=== PATIENT | female | born 1970 | race Caucasian/White ===

== ENCOUNTER 2025-08-01 09:04 | Outpatient (CLI) | payer OTHER, SELFPAY ==
[2025-08-01 15:44] LABS: Influenza A, PCR Not Detected (NotDetected); Influenza B, PCR Not Detected (NotDetected)
[2025-08-01 22:00] LABS: Coronavirus 19, PCR Detected (NotDetected)
--- OUTSIDE RECORDS SUMMARY | 2025-08-02 13:19 | XMS_ITS | Clinical Summary ---
Author Organization [facility] ystem Address [address] [place] [address] Care Team Providers Care Eyeglass Frames Inspector Name Role Phone Deandra Chapman Primary Care Provider [phone] Allergies Active Allergy Reactions Criticality Noted Date Comments Amoxicillin-Pot Clavulanate Hives 12/17/2022 Ciprofloxacin Itching,Rash Low 04/09/2016 Clarithromycin Rash Low 04/08/2016 Other Hives 04/08/2016 Contrast Dye Oxycodone-Acetaminophen Headache,Nausea Only 04/08/2016 Penicillins Rash Low 06/14/2023 Sulfamethoxazole-Trimetho prim Rash Low 12/17/2022 Tramadol Other (See Comments) 06/14/2023 Tired and drowsy Yeast-Derived Drug Products Itching 04/08/2016 Medications aspirin 81 MG EC tablet Take 1 tablet by mouth Daily. Active Cholecalciferol 50 MCG (1999) capsule Take 5,000 Units by mouth Daily. Active fluticasone (FLONASE) 50 MCG/ACT nasal sprayIndications:A cute maxillary sinusitis, recurrence not specified Administer 2 sprays into the nostril(s) as directed by provider Daily. 16 g 2 5 Active estradiol (ESTRACE VAGINAL) 0.1 MG/GM vaginal creamIndications:D yspareunia, female,Vaginal atrophy 1 gram per vagina qhs x 7 then twice weekly 1 each 3 5 Active metFORMIN ER (GLUCOPHAGE-XR) 500 MG 24 hr tabletIndications: Encounter for well adult exam without abnormal findings,Prediabet es Take 1 tablet by mouth Daily With Breakfast. 30 tablet 5 5 Active atorvastatin (LIPITOR) 40 MG tabletIndications: Mixed hyperlipidemia Take 1 tablet by mouth Daily. 90 tablet 3 5 Active DULoxetine (CYMBALTA) 60 MG capsuleIndications :Fibromyalgia Take 1 capsule by mouth Daily. 90 capsule 3 5 Active metoprolol succinate XL (TOPROL-XL) 25 MG 24 hr tabletIndications: Primary hypertension Take 1 tablet by mouth Daily. 90 tablet 3 5 Active omeprazole (priLOSEC) 20 MG capsuleIndications :Gastroesophageal reflux disease, unspecified whether esophagitis present Take 1 capsule by mouth Daily. 90 capsule 3 5 Active modafinil (PROVIGIL) 200 MG tabletIndications: Primary narcolepsy without cataplexy Take 1 tablet by mouth Daily. 30 tablet 3 5 Active Estradiol (ESTRACE) 0.01 % vaginal cream Insert 2 g into the vagina Daily. 4 g 1 5 Active Active Problems Problem Noted Date Diagnosed Date Hypopituitarism 10/24/2023 Primary narcolepsy without cataplexy 10/24/2023 TERESA (obstructive sleep apnea) 10/24/2023 Gastroesophageal reflux disease 10/24/2023 RLS (restless legs syndrome) 10/24/2023 Vitamin D deficiency 10/24/2023 Primary hypertension 10/23/2023 Prediabetes 10/23/2023 Mixed hyperlipidemia 10/23/2023 Fibromyalgia 10/23/2023 Encounters Date Type Department Care Team Description 07/12/2025 Refill [facility] O[facility] [address] [place] [address] Lucina Beckett APRN 06/10/2025 Telephone [facility] [address] [address] Deandra Chapman PA PA Denial (NUVIA Denied for Provigil for not meeting requirement of consultation with neuro/sleep medicine) 06/02/2025 Results Follow-Up [facility] [address] [address] Deandra Chapman PA 05/30/2025 11:00 AM EDT Office Visit [facility] [address] [place] [address] Deandra Chapman PA Encounter for well adult exam without abnormal findings (Primary Dx); Obesity (BMI 30.0-34.9); Primary hypertension; Mixed hyperlipidemia; Vitamin D deficiency; Primary narcolepsy without cataplexy; Hypopituitarism; Screening for malignant neoplasm of colon; Prediabetes; Fibromyalgia; Gastroesophageal reflux disease, unspecified whether esophagitis present 05/30/2025 Travel from Last 3 Months Immunizations Immunization Administration Dates Next Due Hep B, Unspecified 08/11/2012,08/11/2010, 010 Influenza, Unspecified 05/17/2025 Pneumococcal Conjugate 20-Valent (PCV20) 024 Pneumococcal, Unspecified 07/11/2021 Tdap 04/28/2024 Zoster, Unspecified 07/11/2022,06/11/2022,2021 Family History Medical History Relation Name Comments Diabetes Father Parvin Whitmore Heart attack Father Parvin Whitmore Hyperlipidemia Father Parvin Whitmore Hypertension Father Parvin Whitmore Cancer Mother Nell Rosen Breast cancer Paternal Aunt 60's Breast cancer Paternal Cousin 1 Breast cancer Paternal Cousin 2 Ovarian cancer Neg Hx Relation Name Status Comments Father Parvin Whitmore Mother Nell Rosen Paternal Aunt Paternal Cousin 1 Paternal Cousin 2 Alive Social History Tobacco Use Types Packs/Day Years Used Date Smoking Tobacco: Former Cigarettes 0.5 1.8 0 08/11/2022 - 06/11/2024 Passive Smoke Exposure: Current Smokeless Tobacco: Never Tobacco Cessation:Counseling Given: Not Answered Alcohol Use Standard Drinks/Week Comments Not Currently 0 (1 standard drink = 0.6 oz pur e alcohol) PHQ-2 Answer Date Recorded Patient Health Questionnaire-2 Score 0 05/30/2025 Comments No Sex and Gender Information Value Date Recorded Sex Assigned at Female 05/29/2025 11:14 AM EDT Legal Sex Female 9:18 AM EST Gender Identity Not on file Sexual Orientation Not on file Last Filed Vital Signs Vital Sign Reading Time Taken Comments Blood Pressure 116/78 05/30/2025 10:45 AM EDT Pulse 71 05/30/2025 10:45 AM EDT Temperature 36.4 C (97.6 F) 05/30/2025 10:45 AM EDT Respiratory Rate 18 03/23/2025 8:53 AM EDT Oxygen Saturation 96% 05/30/2025 10:45 AM EDT Inhaled Oxygen Concentration - - Weight 91.6 kg (202 lb) 05/30/2025 10:45 AM EDT Height 165.1 cm (5' 5 ) 05/30/2025 10:45 AM EDT Body Mass Index 33.61 05/30/2025 10:45 AM EDT Plan of Treatment Upcoming Encounters Date Type Department Care Team (Late st Contact Info) Description 09/17/2025 11:10 AM EST Appointment [address] [address] 11/14/2025 3:00 PM EDT Office Visit [facility] [address] [place] [address] Deandra Chapman PA [address] [place] [address] 03/29/2026 8:30 AM EDT Office Visit [facility] O[facility]YN [address] [place] [address] Anel Haque, CANAL BOAT OPERATOR [address] [facility] [address] [place] [address] Health Maintenance Due Date Last Done Comments COLOGUARD 2015 COLON CANCER SCREENING 5 YEA R SIGMOIDOSCOPY 2015 CT COLONOGRAPHY 2015 FECAL OCCULT BLOOD TEST 2015 FIT Testing (1 year) 2015 MAMMOGRAM 12/07/2025 12/08/2023, 11/10, 11/28/2023, Additional history exists Annual Gynecologic Pelvic an d Breast Exam 03/24/2026 03/23/2025 ANNUAL PHYSICAL 05/30/2026 05/30/2025, 11/2022 (Patient-Reported (Performed Externally)) LIPID PANEL 05/30/2026 05/30/2025, 0401/2025, 04/28/2024, Additional history exists COLONOSCOPY 05/30/2028 05/30/2025, 08/2019 (Patient-Reported (Performed Externally)) COLORECTAL CANCER SCREENING 05/30/2028 TDAP/TD VACCINES (2 - Td or Tdap) 04/28/2034 024 ZOSTER VACCINE Discontinued 07/11/2022, 08/2021, 03/11/2022 HEPATITIS C SCREENING Completed 06/14/2023 Pneumococcal Vaccine 50+ Completed 04/28/2024, 08/2020 INFLUENZA VACCINE Completed 05/18/2025, 05/17/2025 Procedures Procedure Name Priority Date/Time Associated Diagnosis Comments CBC AND DIFFERENTIAL Routine 05/30/2025 11:20 AM EDT Encounter for well adult exam without abnormal findings Obesity (BMI 30.0-34.9) Primary hypertension Mixed hyperlipidemia Primary narcolepsy without cataplexy MAGNESIUM Routine 05/30/2025 11:20 AM EDT Encounter for well adult exam without abnormal findings Obesity (BMI 30.0-34.9) FOLATE Routine 05/30/2025 11:20 AM EDT Encounter for well adult exam without abnormal findings Obesity (BMI 30.0-34.9) VITAMIN B12 Routine 05/30/2025 11:20 AM EDT Encounter for well adult exam without abnormal findings Obesity (BMI 30.0-34.9) IRON PROFILE Routine 05/30/2025 11:20 AM EDT Encounter for well adult exam without abnormal findings Obesity (BMI 30.0-34.9) VITAMIN D,25-HYDROXY Routine 05/30/2025 11:20 AM EDT Encounter for well adult exam without abnormal findings Vitamin D deficiency INSULIN, TOTAL Routine 05/30/2025 11:20 AM EDT Encounter for well adult exam without abnormal findings Obesity (BMI 30.0-34.9) T4, FREE Routine 05/30/2025 11:20 AM EDT Encounter for well adult exam without abnormal findings Obesity (BMI 30.0-34.9) Hypopituitarism TSH Routine 05/30/2025 11:20 AM EDT Encounter for well adult exam without abnormal findings Obesity (BMI 30.0-34.9) Hypopituitarism HEMOGLOBIN A1C Routine 05/30/2025 11:20 AM EDT Encounter for well adult exam without abnormal findings Obesity (BMI 30.0-34.9) LIPID PANEL Routine 05/30/2025 11:20 AM EDT Encounter for well adult exam without abnormal findings Mixed hyperlipidemia COMPREHENSIVE METABOLIC PANEL Routine 05/30/2025 11:20 AM EDT Encounter for well adult exam without abnormal findings Obesity (BMI 30.0-34.9) Primary hypertension Mixed hyperlipidemia Primary narcolepsy without cataplexy SCANNED - COLONOSCOPY 05/30/2025 MAMMO OUTSIDE FILMS Routine 12/05/2023 1 :25 PM EDT H/O mammogram from Last 3 Months or Most Recently Relevant to Health Maintenance Results * Iron Profile w/o Ferritin (05/30/2025 11:20 AM EDT) TIBC 299 250 - 450 ug/dL [facility] UIBC 221 131 - 425 ug/dL [facility] Iron 78 27 - 159 ug/dL [facility] Iron Saturation 26 15 - 55 % [facility] Blood 05/30/2025 11:2 0 AM EDT 05/30/2025 Narrative [facility] ([facility]) - 05/31/2025 8:11 AM EDT Performed at: 01 - [facility] [place], [place] [id number] Formula Room Worker: Geoff Meadows PhD, Phone: [phone] Patient Fasting: Y Deandra PEDERSEN LAB BLOOD ORDERABLES Final Res ult Performing Organization Address City/[facility]/ZIP Co de Phone Number [facility] [address] [place] [address], [facility] [address] [place] [address], * Vitamin D 25 hydroxy (05/30/2025 11:20 AM EDT) [facility] 25 Hydroxy, Vitamin D 48.9 30.0 - 100.0 ng/mL [facility] Comment: Vitamin D deficiency has been defined by the [place] of Medicine and an Endocrine Society practice guideline as a level of serum 25-OH vitamin D less than 20 ng/mL (1,2). The Endocrine Society went on to further define vitamin D insufficiency as a level between 21 and 29 ng/mL (2). 1. IOM ([place] of Medicine). 2010. Dietary reference intakes for calcium and D. Velás[place]: The National Academies Press. 2. Mindy MF, Richard NC, Trice SNOW, et al. Evaluation, treatment, and prevention of vitamin D deficiency: an Endocrine Society clinical practice guideline. JCEM. 2010; 96(7):1911-30. Blood 05/30/2025 11:2 0 AM EDT 05/30/2025 Narrative [facility]) - 05/31/2025 8:11 AM EDT Performed at: 01 - [facility] [address] [place], [place] [id number] Formula Room Worker: Geoff Meadows PhD, Phone: [phone] Patient Fasting: Y Deandra PEDERSEN LAB BLOOD ORDERABLES Final Res ult Performing Organization Address City/[facility]/ZIP Co de Phone Number [facility] ([facility]) [address] [place] [address], [facility] [address] [place] [address], * Insulin, Total (05/30/2025 11:20 AM EDT) Pathologist [facility] Insulin 14.0 2.6 - 24.9 uIU/mL [facility] Blood 05/30/2025 11:2 0 AM EDT 05/30/2025 Narrative [facility] (AMBULATORY) - 05/31/2025 8:11 AM EDT [facility]formed at: [facility] - [facility] [address] [place], [place] [id number] Formula Room Worker: Geoff Meadows PhD, Phone: [phone] Patient Fasting: Y Deandra PEDERSEN LAB BLOOD ORDERABLES Final Res ult [facility] (AMBULATORY) [address] [place] [address], [facility] [address] [place] [address], * CBC w AUTO Differential (05/30/2025 11:20 AM EDT) [facility] WBC 8.0 3.4 - 10.8 x10E3/uL [facility] RBC 4.35 3.77 - 5.28 x10E6/uL [facility] Hemoglobin 13.6 11.1 - 15.9 g/dL [facility] Hematocrit 40.9 34.0 - 46.6 % [facility] MCV 94 79 - 97 fL [facility] MCH 31.3 26.6 - 33.0 pg [facility] MCHC 33.3 31.5 - 35.7 g/dL [facility] RDW 12.2 11.7 - 15.4 % [facility] Platelets 307 150 - 450 x10E3/uL [facility] Neutrophil Rel % 65 Not Estab. % [facility] Lymphocyte Rel % 27 Not Estab. % [facility] Monocyte Rel % 6 Not Estab. % [facility] Eosinophil Rel % 2 Not Estab. % [facility] Basophil Rel % 0 Not Estab. % [facility] Neutrophils Absolute 5.1 1.4 - 7.0 x10E3/uL [facility] Lymphocytes Absolute 2.2 0.7 - 3.1 x10E3/uL [facility] Monocytes Absolute 0.5 0.1 - 0.9 x10E3/uL [facility] Eosinophils Absolute 0.1 0.0 - 0.4 x10E3/uL [facility] Basophils Absolute 0.0 0.0 - 0.2 x10E3/uL [facility] Immature Granulocyte Rel % 0 Not Estab. % [facility] Immature Grans Absolute 0.0 0.0 - 0.1 x10E3/uL [facility] Blood 05/30/2025 11:2 0 AM EDT 05/30/2025 Narrative [facility] ([facility]) - 05/31/2025 8:11 AM EDT Performed at: [address] [place] [id number] Formula Room Worker: Geoff Meadows PhD, Phone: [phone] Patient Fasting: Y Deandra PEDERSEN LAB BLOOD ORDERABLES Final Res ult Performing Organization Address [facility] de Phone Number [facility] (AMBULATORY) [address] [place] [address], [facility] [address] [place] [address], * TSH (05/30/2025 11:20 AM EDT) TSH 0.509 0.450 - 4.500 uIU/mL [facility] Blood 05/30/2025 11:2 0 AM EDT 05/30/2025 Narrative [facility] ([facility]) - 05/31/2025 8:11 AM EDT Performed at: [address] [place] [id number] Formula Room Worker: Geoff Meadows PhD, Phone: [phone] Patient Fasting: Y us Deandra PEDERSEN LAB BLOOD ORDERABLES Final Res ult Performing Organization Address City/[facility]/ZIP Co de Phone Number [facility] ([facility]) [address] [place] [address], [facility] [address] [place] [address], * T4, free (05/30/2025 11:20 AM EDT) Free T4 0.98 0.82 - 1.77 ng/dL [facility] Blood 05/30/2025 11:2 0 AM EDT 05/30/2025 Narrative [facility] ([facility]) - 05/31/2025 8:11 AM EDT Performed at: - [address] [id number] Formula Room Worker: Geoff Meadows PhD, Phone: [phone] Patient Fasting: Y us Deandra PEDERSEN LAB BLOOD ORDERABLES Final Res ult Performing Organization Address [facility] Co de Phone Number [facility] ([facility]) [address] [place] [address], [facility] [address] [place] [address], * Magnesium (05/30/2025 11:20 AM EDT) Magnesium 2.2 1.6 - 2.3 mg/dL [facility] Blood 05/30/2025 11:2 0 AM EDT 05/30/2025 Narrative [facility] ([facility]) - 05/31/2025 8:11 AM EDT Performed at: - [address] [id number] Formula Room Worker: Geoff Meadows PhD, Phone: [phone] Patient Fasting: Y us Deandra PEDERSEN LAB BLOOD ORDERABLES Final Res ult Performing Organization Address City/[facility]/ZIP Co de Phone Number [facility] (AMBULATORY) [address] [place] [address], [place] [phone] [facility] [address] [place] [address], [place] [phone] * (ABNORMAL) Hemoglobin A1c (05/30/2025 11:20 AM EDT) Pathologist [facility] Hemoglobin A1C 5.9(H) 4.8 - 5.6 % [facility] Comment: Prediabetes: 5.7 - 6.4 Diabetes: >6.4 Glycemic control for adults with diabetes: <7.0 Blood 05/30/2025 11:2 0 AM EDT 05/30/2025 Narrative [facility] ([facility]) - 05/31/2025 8:11 AM EDT Performed at: - [address] [id number] Formula Room Worker: Geoff Meadows PhD, Phone: [phone] Patient Fasting: Y Deandra PEDERSEN LAB BLOOD ORDERABLES Final Res ult Performing Organization Address [facility] Co de Phone Number [facility] ([facility]) [address] [place] [address], [facility] [address] [place] [address], * Folate (05/30/2025 11:20 AM EDT) [facility] Folate 10.7 >3.0 ng/mL [facility] Comment: A serum folate concentration of less than 3.1 ng/mL is considered to represent clinical deficiency. Blood 05/30/2025 11:2 0 AM EDT 05/30/2025 Narrative [facility] ([facility]) - 05/31/2025 8:11 AM EDT Performed at: - [address] [id number] Formula Room Worker: Geoff Meadows PhD, Phone: [phone] Patient Fasting: Y Deandra PEDERSEN LAB BLOOD ORDERABLES Final Res ult Performing Organization Address [facility]/ZIP Co de Phone Number [facility] ([facility]) [address] [place] [address], [facility] [address] [place] [address], [place] [phone] * Vitamin B12 (05/30/2025 11:20 AM EDT) [facility] Vitamin B-12 621 232 - 1,245 pg/mL [facility] Blood 05/30/2025 11:2 0 AM EDT 05/30/2025 Narrative [facility] ([facility]) - 05/31/2025 8:11 AM EDT Performed at: - [address] [id number] Formula Room Worker: Geoff Meadows PhD, Phone: [phone] Patient Fasting: Y us Deandra PEDERSEN LAB BLOOD ORDERABLES Final Res ult [facility] (AMBUL[facility]) [address] [place] [address], [place] [phone] [facility] [address] [place] [address], [place] [phone] * (ABNORMAL) Lipid Panel (05/30/2025 11:20 AM EDT) [facility] Total Cholesterol 142 100 - 199 mg/dL [facility] Triglycerides 102 0 - 149 mg/dL [facility] HDL Cholesterol 35(L) >39 mg/dL [facility] VLDL Cholesterol Jonh 19 5 - 40 mg/dL [facility] LDL Chol Calc (NIH) 88 0 - 99 mg/dL [facility] Blood 05/30/2025 11:2 0 AM EDT 05/30/2025 Narrative [facility] ([facility]) - 05/31/2025 8:11 AM EDT Performed at: - [address] [id number] Formula Room Worker: Geoff Meadows PhD, Phone: [phone] Patient Fasting: Y us Deandra PEDERSEN LAB BLOOD ORDERABLES Final Res ult [facility] ([facility]) [address] [place] [address], [facility] [address] [place] [address], * Comprehensive metabolic panel (05/30/2025 11:20 AM EDT) [facility] Glucose 98 70 - 99 mg/dL [facility] BUN 16 6 - 24 mg/dL [facility] Creatinine 0.86 0.57 - 1.00 mg/dL [facility] EGFR Result 80 >59 mL/min/1.7 3 [facility] BUN/Creatinine Ratio 19 9 - 23 [facility] Sodium 140 134 - 144 mmol/L [facility] Potassium 4.7 3.5 - 5.2 mmol/L [facility] Chloride 104 96 - 106 mmol/L [facility] Total CO2 25 20 - 29 mmol/L [facility] Calcium 9.6 8.7 - 10.2 mg/dL [facility] Total Protein 6.9 6.0 - 8.5 g/dL [facility] Albumin 4.3 3.8 - 4.9 g/dL [facility] Globulin 2.6 1.5 - 4.5 g/dL [facility] Total Bilirubin 0.5 0.0 - 1.2 mg/dL [facility] Alkaline Phosphatase 107 49 - 135 IU/L [facility] AST (SGOT) 15 0 - 40 IU/L [facility] ALT (SGPT) 24 0 - 32 IU/L [facility] Blood 05/30/2025 11:2 0 AM EDT 05/30/2025 Narrative [facility] ([facility]) - 05/31/2025 8:11 AM EDT Performed at: 01 - [facility] [address] [facility], [place], [place] [id number] Formula Room Worker: Geoff Meadows PhD, Phone: [phone] Patient Fasting: Y Deandra PEDERSEN LAB BLOOD ORDERABLES Final Res ult [facility] ([facility]) [address] [place] [address], [facility] [address] [place] [address], * Colonoscopy, Scan (05/30/2025) Deandra PEDERSEN CHART REVIEW TABS Final Res ult * MAMMO Outside Films (12/05/2023 1:25 PM EDT) Narrative SYSTEMGENERATED, DOCUMENTATION - 12/05/2023 1:25 PM EDT This procedure was auto-finalized with no dictation required. Deandra PEDERSEN IMG MAMMOGRAPHY ORDERABLES Fin al Result from Last 3 Months or Most Recently Relevant to Health Maintenance Insurance [facility] [employer] [place] [employer] Care Teams Eyeglass Frames Inspector Relationship Specialty Start Date End Date Deandra Chapman PA [address] [facility] [address] PCP - General Physician Regulator Mechanic 10/23/23
--- OUTSIDE RECORDS SUMMARY | 2025-08-02 13:19 | XMS_ITS | Encounter Summary ---
[facility] Address [address] [place] [address] Care Team Providers Care Head Host/Hostess Name Role Phone Deandra Chapman Primary Care Provider Reason for Visit * Reason Onset Date Comments PA Denial 06/10/2025 PA Denied for Pr ovigil for not meeting requirement of consultation with neuro/sleep medicine Encounter Details Date Type Department Care Team (Late st Contact Info) Description 06/10/2025 Telephone [facility]INE [address] [place] [address] Deandra Chapman PA [address] [place] [address] PA Denial (NUVIA Denied for Provigil for not meeting requirement of consultation with neuro/sleep medicine) Social History Tobacco Use Types Packs/Day Years Used Date Smoking Tobacco: Former Cigarettes 0.5 1.8 0 08/11/2022 - 06/11/2024 Passive Smoke Exposure: Current Smokeless Tobacco: Never Alcohol Use Standard Drinks/Week Comments Not Currently 0 (1 standard drink = 0.6 oz pur e alcohol) PHQ-2 Answer Date Recorded Patient Health Questionnaire-2 Score 0 05/30/2025 Comments No Sex and Gender Information Value Date Recorded Sex Assigned at Female 05/29/2025 11:14 AM EDT Legal Sex Female 9:18 AM EST Gender Identity Not on file Sexual Orientation Not on file documented as of this encounter Miscellaneous Notes * Telephone Encounter - Deandra Chapman PA - 06/12/2025 1:46 PM EST There is no message associated with this telephone encounter but it appears that patient must get provigil from sleep medicine provider per insurance. Has appointment schedule this month. documented in this encounter Plan of Treatment Upcoming Encounters Date Type Department Care Team (Late st Contact Info) Description 09/17/2025 11:10 AM EST Appointment [facility] [id number] [place] [address] 11/14/2025 3:00 PM EDT Office Visit [facility] [address] [place] [address] Deandra Chapman PA [address] [place] [address] 03/29/2026 8:30 AM EDT Office Visit [facility] OBGYN [address] [place] [address] Anel Haque, RECRUITMENT AND OUTREACH ASSISTANT [address] [facility] [address] [place] [address] documented as of this encounter Visit Diagnoses Not on filedocumented in this encounter Care Teams Head Host/Hostess Relationship Specialty Start Date End Date Deandra Chapman PA [address] [place] [address] PCP - General Physician Judge'S Clerk 10/23/23 documented as of this encounter
--- OUTSIDE RECORDS SUMMARY | 2025-08-02 13:19 | XMS_ITS | Patient Health Record ---
Author Organization [facility] in [place] Address [address] [place] [address] Care Team Providers Care Watch Parts Inspector Name Role Phone Natasha Shafer CNP Primary Care Provider Unava ilable Allergies Allergen (clinical drug ingredient) Drug/Non Drug Allergy documented on EMR Reaction Allergy Type Onset Date Status contract dye (uncoded) Unknown Allergy Active amoxicillin / clavulanate Augmentin Unknown Drug Allergy Active Biaxin Unknown Drug Allergy Active ciprofloxacin Cipro Unknown Drug Allergy Act lam Yeast Formula Unknown Drug Allergy Act lam Reason For Referral No Information Medications Medication SIG (Take, Route, Frequency, Duration) Notes Start Date End Date Status Hydrocortisone 10 MG 1 tablet with food or milk Orally every 12 hrs Active Gabapentin 100 MG 1 capsule Orally Thr ee times a day Active Doxycycline Hyclate 100 MG 1 tablet Oral ly every 12 hrs; Duration: 5 day(s) Active Cymbalta 60 MG 1 capsule Orally Onc e a day Active Xyrem 500 MG/ML 6 ml at bedtime Oral ly Twice a day Active Levothyroxine Sodium 75 MCG 1 tablet on an empty stomach in the morning Orally Once a day Active Adderall 20 MG 1 tablet before meal s Orally TID; Duration: 30 days 11/30/2018 Active Social History Tobacco Use: Social History Observation Description Date Details (start date - stop date) Never Smoker NA - NA Tobacco Use/Smoking Question Answer Notes Patient is a nonsmoker Problems Problem Type SNOMED Code ICD Code Onset Dates Problem Status W/U Status Risk Notes Problem Cataplexy and narcolepsy (857441117) Narcolepsy with cataplexy (G47.411) Active confirmed Problem Obstructive sleep apnea syndrome (71971131) Obstructive sleep apnea syndrome (G47.33) Active confirmed Problem Cataplexy and narcolepsy (371272266) Narcolepsy and cataplexy (G47.411) Active confirmed Plan Of Treatment No Information Insurance Providers Payer Name Payer Address Payer Phone Subscriber Number Group Number Insured Name Patient Relationship to Insured Coverage Start Date Coverage End Date [facility] [address] [place] [phone] [id number] December, Self - patient is the insured Medical (General) History Medical History History ICD Code Essential hypertension I10 Hyperthyroidism E05.90 TERESA (obstructive sleep apnea) G47.33 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
--- OUTSIDE RECORDS SUMMARY | 2025-08-02 13:19 | XMS_ITS | Encounter Summary ---
[facility] [address] [place] [address] Care Team Providers Care Highway Patrol Commander Name Role Phone Deandra Chapman Primary Care Provider [phone] Reason for Visit * Reason Onset Date Comments Med Refill 07/12/2025 Encounter Details Date Type Department Care Team (Late st Contact Info) Description 07/12/2025 Refill [facility] OBGYN [address] [place] [address] Lucina Beckett, MEDICARE COORDINATOR [address] [place] [address] Social History Tobacco Use Types Packs/Day Years [...] on file documented as of this encounter Plan of Treatment Upcoming Encounters Date Type Department Care Team (Late st Contact Info) Description 09/17/2025 11:10 AM EST Appointment [facility] [address] [facility] [place] [address] 11/14/2025 3:00 PM EDT Office Visit [facility] [address] [place] [address] Deandra Chapman PA [address] [place] [address] 03/29/2026 8:30 AM EDT Office Visit [facility] OBGYN [address] [place] [address] Anel Haque, MEDICARE COORDINATOR [address] [facility] [address] [place] [address] documented as of this encounter Visit Diagnoses Not on filedocumented in this encounter Care Teams Highway Patrol Commander Relationship Specialty Start Date End Date Deandra Chapman PA [address] [place] [address] PCP - General Physician Tax Services Professional 10/23/23 documented as of this encounter
--- OUTSIDE RECORDS SUMMARY | 2025-08-02 13:19 | XMS_ITS | Encounter Summary ---
[facility] [address] [place] [address] Care Team Providers Care Music Director Name Role Phone Deandra Chapman Primary Care Provider [phone] Reason for Visit * Reason Onset Date Comments Med Refill 09/03/2024 Encounter Details Date Type Department Care Team (Late st Contact Info) Description 09/03/2024 Refill [facility] [address] [place] [address] Max Mahoney MD [address] [place] [address] Primary narcolepsy without cataplexy Social History Tobacco Use Types Packs/Day Years Used Date Smoking Tobacco: Every Day Cigarettes 0.5 3 Started: 08/11/2022 Passive Smoke Exposure: Current Smokeless Tobacco: Never Alcohol Use Standard Drinks/Week Comments Not Currently 0 (1 standard drink = 0.6 oz pur e alcohol) PHQ-2 Answer Date Recorded Retired PHQ-9: Brief Depression Severity Measure Score 4 10/23/2023 Comments No Sex and Gender Information Value Date Recorded Sex Assigned at Female 05/29/2025 11:14 AM EDT Legal Sex Female 9:18 AM EST Gender Identity Not on file Sexual Orientation Not on file documented as of this encounter Plan of Treatment Upcoming Encounters Date Type Department Care Team (Late st Contact Info) Description 09/17/2025 11:10 AM EST Appointment [facility] [address] [place] [address] 11/14/2025 3:00 PM EDT Office Visit [facility] [address] [place] [address] Deandra Chapman PA [address] [place] [address] 03/29/2026 8:30 AM EDT Office Visit [facility] OBGYN [address] [place] [address] Anel Haque, MANAGER REGIONAL [address] [facility] [address] [place] [address] documented as of this encounter Visit Diagnoses Diagnosis Primary narcolepsy without cataplexy documented in this encounter Care Teams Music Director Relationship Specialty Start Date End Date Deandra Chapman PA [address] [place] [address] PCP - General Physician Pedicurist 10/23/23 documented as of this encounter
--- OUTSIDE RECORDS SUMMARY | 2025-08-02 13:19 | XMS_ITS | Patient Health Record ---
Author Organization [facility] Address [address] [place] [address] Care Team Providers Care Ruling Technician Name Role Phone Natasha Shafer CNP Primary Care Provider Adama Lange Unavailable [phone] Reason For Referral No Information Medications Medication SIG (Take, Route, Fr equency, Duration) Notes Start Date End Date Status Sunosi Active levothyroxine Active hydrocortisone Activ e Singulair Active omeprazole Active gabapentin Active atorvastatin Active Cymbalta Active metoprolol Active Vitamin D3 Active Co-Q10 Active loratadine Active Social History Tobacco Use: Social History Observation Description Date Details (start date - stop date) Never Smoker NA - NA Smoking History Question Answer Notes Smoking Status NonSmoker Problems Problem Type SNOMED Code ICD Code Onset Dates Problem Status W/U Status Risk Notes Problem Carpal tunnel syndrome (80530820) Carpal tunnel syndrome, right upper limb (G56.01) Active confirmed Problem Carpal tunnel syndrome (69952604) Carpal tunnel syndrome on both sides (G56.03) Active confirmed Problem Carpal tunnel syndrome (84801279) Carpal tunnel syndrome, bilateral upper limbs (G56.03) Active confirmed Problem Carpal tunnel syndrome (53658572) Carpal tunnel syndrome, right (G56.01) Active confirmed Problem Carpal tunnel syndrome (27696430) Carpal tunnel syndrome, left (G56.02) Active confirmed Plan Of Treatment No Information Insurance Providers Payer Name Payer Address Payer Phone Subscriber Number Group Number Insured Name Patient Relationship to Insured Coverage Start Date Coverage End Date [facility]/o [facility] ATTEN Samara Troncoso [address] [place] [address] [phone] [id number] doi 05-10-22 bilat cts DECEMBER, YUMIKO Self - patient is the insured 2 [facility] [address] [address] [place] [address] [id number] DECEMBER, SANDRO Spouse - patient is the spouse of the insured Medical (General) History Surgical History Surgery Date(Month/Year) 05/14/1995 06/18/1999 Hysterectomy 2012 Right carpal tunnel release 07/23/2022 Left carpal tunnel release 08/01/2022
--- OUTSIDE RECORDS SUMMARY | 2025-08-02 13:19 | XMS_ITS | Patient Health Record ---
Author Organization [facility] Address [address] [place] [address] Care Team Providers Care Clearing Tub Worker Name Role Phone Louise Prince PA-C Unavailable Unavailable Reason For Referral No Information Medications Medication SIG (Take, Route, Frequency, Duration) Notes Start Date End Date Status Vitamin E 100 UNIT Capsule Oral Active Omeprazole 20 MG Capsule Delayed Release Oral Active Atorvastatin Calcium 20 MG Tablet take 1 tablet (20 mg) by oral route once daily Oral 1 Active GNP Vitamin D Super Strength 125 MCG (5000 UT) Tablet Oral Active Gabapentin 300 MG Capsule Oral Active Fluticasone Propionate 50 MCG/ACT Suspension Nasal Active Loratadine 10 MG Tablet take 1 tablet (1 0 mg) by oral route once daily Oral 1 Active Hydrocortisone 10 MG Tablet take 1 tablet (10 mg) by oral route once daily with food Oral 1 Active Calcium 600 mg calcium (1,500 mg) Tablet take 2 tablets by oral route daily Oral 1 *Pick strength-form from [employer] for eRX* Active Aspirin Adult Low Dose 81 MG Tablet Delayed Release take 1 tablet (81 mg) by oral route once daily Oral 1 Active Metoprolol Succinate ER 25 MG Tablet Extended Release 24 Hour take 1 tablet (25 mg) by oral route once daily Oral 1 Active Cymbalta 60 MG Capsule Delayed Release Particles Oral Active Cyclobenzaprine HCl 10 MG Tablet Oral Active Sunosi 150 mg tablet take 1 tablet (150 mg) by oral route once daily upon awakening oral 1 Active Social History Social History Additional Details Category Social Info Options Details Migrated Social History Migrated Social History :: Age of first sexual encounter :: note : 18 , :: Gender of sexual partners :: note : male , :: 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 : 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 - 11/20/2017 - , :: Lifetime partners :: note : 07/18/2020 - 11/20/2017 - 1 , :: Partners in the last 6 months :: note : 11/20/2017 - 1 , Domestic Violence :: Denies emotional/verbal abuse :: note : 11/20/2017 - , Domestic Violence :: Denies physical abuse :: note : 11/20/2017 - , Domestic Violence :: Denies Sexual Abuse :: note : 11/20/2017 - , Exercise :: Active but no formal exercise :: note : 11/20/2017 - , Hazardous Exposure :: Denies knowledge of exposure to hazardous substances :: note : 11/20/2017 - , Infection Risk :: Denies known exposure to STD :: note : 11/20/2017 - , Marital Status :: :: note : 07/18/2020 - 11/20/2017 - , History :: Did not serve :: note : 11/20/2017 - , 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 - , Substance Use :: Alcohol :: Current some day smoker :: note : 11/26/2018 - 11/20/2017 - amp;Use status used: Current some dayamp;Amount used: rarely:: Quantity :: rarely , Substance Use :: No abuse of any substances :: Never smoker :: note : 11/20/2017 - , Substance Use :: Tobacco :: Never smoker :: note : 07/18/2020 - , Travel History :: Uses seat belts :: note : 11/20/2017 - Problems Problem Type SNOMED Code ICD Code Onset Dates Problem Status W/U Status Risk Notes Problem Other specified disorders of bone density and structure, 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 [address] [place], [place] [id number] Vinnie Fontanez [address] [place] [address] [phone] [id number] DecemberVinnie 7 Medical (General) History Surgical History Surgery Date(Month/Year) Colonoscopy: wnl, Date of Procedure: 12/10; 11/14/2016 EGD (esophagogastroduodenosc opy): Mild gastritis and mild duodenitis , Date of Procedure: 2014; 11/14/2016 Section, Primary; 11/26/2018 Section, Repeat subsequent preg nancies; 11/26/2018 cholecsystectomy: Bhavik Coulter, Date of Proc edure: 08/11/2009; 01/20/2015 Endometrial Ablation: Lamar Martínez, Date of Procedure: 08/11/2010; 01/20/2015 TLH Total Laproscopic Hyster ectomy: TLH with BSO via Single Port, TEETEE and Cystoscopy, TL Siddiqi, Date of Procedure: 05/04/2012; 01/20/2015 D&C: BHAVIK Coulter Dr, Date of Procedure : 08/11/2010; 01/20/2015
--- OUTSIDE RECORDS SUMMARY | 2025-08-02 13:19 | XMS_ITS | Encounter Summary ---
[facility] Address [address] [place] [address] Care Team Providers Care Health Program Specialist Name Role Phone Deandra Chapman Primary Care Provider [phone] Encounter Details Date Type Department Care Team (Late st Contact Info) Description 03/24/2025 Results Follow-Up [facility] MEDICAL [facility] OBGYN [address] [place] [address] Anel Haque, COMMANDER INTERNAL AFFAIRS [address] [facility] [address] [place], [place] [id number] Social History Tobacco Use Types Packs/Day Years [...] Info) Description 09/17/2025 11:10 AM EST Appointment [address] [address] 11/14/2025 3:00 PM EDT Office Visit [facility] [address] [place] [address] Deandra Chapman PA [address] [place] [address] 03/29/2026 8:30 AM EDT Office Visit [facility] O[facility] [address] [place] [address] Anel Haque, COMMANDER INTERNAL AFFAIRS [address] [address] documented as of this encounter Visit Diagnoses Not on filedocumented in this encounter Care Teams Health Program Specialist Relationship Specialty Start Date End Date Deandra Chapman PA [address] [place] [address] PCP - General Physician Flexographic Press Plate Setter 10/23/23 documented as of this encounter
--- OUTSIDE RECORDS SUMMARY | 2025-08-02 13:19 | XMS_ITS | Encounter Summary ---
[facility] Address [address] [place] [address] Care Team Providers Care Tooling Inspector Name Role Phone Deandra Chapman Primary Care Provider [phone] Reason for Visit * Reason Onset Date Comments Med Refill 09/09/2024 Encounter Details Date Type Department Care Team (Late st Contact Info) Description 09/09/2024 Refill [facility] MEDICAL [facility]INE [address] [place] [address] Max Mahoney MD [address] [place] [address] Primary narcolepsy without cataplexy Social [...] Info) Description 09/17/2025 11:10 AM EST Appointment [facility] [address] [place] [address] 11/14/2025 3:00 PM EDT Office Visit [facility] [address] [place] [address] Deandra Chapman PA [address] [place] [address] 03/29/2026 8:30 AM EDT Office Visit [facility] OBGYN [address] [place] [address] Anel Haque, DIRECTOR OF OFFICIATING [address] [facility] [address] [place] [address] documented as of this encounter Visit Diagnoses Diagnosis Primary narcolepsy without cataplexy documented in this encounter Care Teams Tooling Inspector Relationship Specialty Start Date End Date Deandra Chapman PA [address] [place] [address] PCP - General Physician Sales Support Administrator 10/23/23 documented as of this encounter
--- OUTSIDE RECORDS SUMMARY | 2025-08-02 13:19 | XMS_ITS | Encounter Summary ---
[facility] Address [address] [place] [address] Care Team Providers Care Inspector Integrated Circuits Name Role Phone Deandra Chapman Primary Care Provider [phone] Encounter Details Date Type Department Care Team (Late st Contact Info) Description 11/29/2024 Results Follow-Up [facility] [address] [facility] [place] [address] Deandra Chapman PA [address] [facility] [place] [address] Social History Tobacco Use Types Packs/Day Years [...] Info) Description 09/17/2025 11:10 AM EST Appointment [address] [address] 11/14/2025 3:00 PM EDT Office Visit [facility] [address] [place] [address] Deandra Chapman PA [address] [place] [address] 03/29/2026 8:30 AM EDT Office Visit [facility] OBGYN [address] [place] [address] Anel Haque, BOOK SEWER [address] [address] documented as of this encounter Visit Diagnoses Not on filedocumented in this encounter Care Teams Inspector Integrated Circuits Relationship Specialty Start Date End Date Deandra Chapman PA [address] [place] [address] PCP - General Physician Toxics Program Officer 10/23/23 documented as of this encounter
--- OUTSIDE RECORDS SUMMARY | 2025-08-02 13:19 | XMS_ITS | Clinical Summary ---
Author Organization [facility] Address [address] [facility] [address] [place] [address] Care Team Providers Care Data Entry Coordinator Name Role Phone Unavailable Primary Care Provider Unavailabl e Social History Tobacco Use Types Packs/Day Years Used Date Smoking Tobacco: Never Assessed Comments Unknown Sex and Gender Information Value Date Recorded Sex Assigned at Not on file Legal Sex Female 5:55 AM EST Gender Identity Not on file Sexual Orientation Not on file Plan of Treatment Not on file
== END 2025-08-01 23:59 | disposition home or self-care (01) ==
LOC: LAB.DROPOF 08-02 13:17
PROVIDERS: Visit Provider Student in an Organized Health Care Education/Training Program
DX: J06.9 Acute upper respiratory infection, unspecified (principal); N39.0 Urinary tract infection, site not specified
CPT/HCPCS: 87086; 87631